=== PATIENT | female | born 1985 | race Caucasian/White ===

== ENCOUNTER 2017-01-03 23:58 | Emergency (ER) | payer MEDICAID ==
[~2017-01-03] VITALS: Ht 160 cm; Wt 49.0 kg
[2017-01-04 00:11] VITALS: BP 108/65
--- NOTE | 2017-01-04 00:22 | NUR ---
PT TAKEN TO OF2
--- NOTE | 2017-01-04 00:33 | NUR ---
Dr. Shaw evaluating patient at bedside.
[2017-01-04] MEDS ORDERED: KETOROLAC 60 MG/2 ML VIAL IM ONE (00:35)
[2017-01-04] MEDS ORDERED: ONDANSETRON 4 MG/2 ML VIAL IM ONE (00:35)
--- NOTE | 2017-01-04 01:25 | NUR ---
PATIENT PRESENTS TO ED WITH N/V, ABD PAIN, DIARRHEA STARTED AT 2000HOURS SKIN IS PINK/WARM/DRY; AAOX4 WITH EVEN AND STEADY GAIT; LUNGS CLEAR BL; HR EVEN AND REGULAR; PT DENIES ANY FEVER, CP, SOB, OR COUGH AT THIS TIME; PATIENT STATES PAIN OF 10/10 AT THIS TIME; VSS; PATIENT POSITIONED FOR COMFORT; HOB ELEVATED; BEDRAILS UP X2; BED DOWN. ER MD MADE AWARE OF PT STATUS.
--- NOTE | 2017-01-04 01:27 | NUR ---
PT MOVED TO BED 6
[2017-01-04] MEDS ORDERED: NACL 0.9% 2,000 ML IV ONE (02:15)
[2017-01-04] MEDS ORDERED: PROCHLORPERAZINE 10 MG/2 ML VIAL IVP ONE (02:15)
[2017-01-04] MEDS ORDERED: LORazepam 2 MG/ML VIAL IVP ONE (02:15)
[2017-01-04 03:27] LABS: BASOPHILS # (AUTO) 0.1 K/uL (0.00-0.22); BASOPHILS % (AUTO) 1.1 % (0.0-2.0); EOSINOPHILS # (AUTO) 0.1 K/uL (0-0.4); EOSINOPHILS % (AUTO) 0.8 % (0.0-4.0); HEMATOCRIT 40.3 % (36-48); HEMOGLOBIN 13.4 g/dL (12.0-16.0); LYMPHOCYTES % (AUTO) 10.3 % (20.5-51.1); MEAN CORPUSCULAR HEMOGLOBIN 31 pg (27-31); MEAN CORPUSCULAR HGB CONC 33 g/dL (33-37); MEAN CORPUSCULAR VOLUME 93 fL (80-94); MONOCYTES # (AUTO) 0.6 K/uL (0.8-1.0); MONOCYTES % (AUTO) 5.9 % (1.7-9.3); NEUTROPHILS # (AUTO) 7.6 K/uL (1.8-7.7); PLATELET COUNT (AUTO) 232 K/uL (140-450); RED BLOOD CELL COUNT(AUTO) 4.36 MIL/uL (4.20-5.40); RED CELL DISTRIBUTION WIDTH 12.4 % (11.6-13.7)
[2017-01-04 03:33] LABS: NEUTROPHILS % (AUTO) 81.9 % (42.2-75.2); WHITE BLOOD COUNT (AUTO) 9.4 K/uL (4.8-10.8)
[2017-01-04 03:36] LABS: ANION GAP 12.6 (8-16); CALCIUM 7.6 mg/dL (8.5-10.1); CARBON DIOXIDE 23.8 mmol/L (21-32); CREATININE 0.7 mg/dL (0.6-1.3); POTASSIUM 3.4 mmol/L (3.5-5.1)
[2017-01-04 03:42] LABS: ALBUMIN 3.4 g/dL (3.4-5.0); TOTAL BILIRUBIN 0.6 mg/dL (0.0-1.0); TOTAL PROTEIN, SERUM 6.7 g/dL (6.4-8.2)
[2017-01-04 03:47] LABS: INR 1.3 (0.8-1.2); PARTIAL THROMBOPLASTIN TIME 26.3 secs (22-35.6); PROTHROMBIN TIME 12.7 secs (10.8-13.4)
[2017-01-04 05:16] VITALS: BP 90/49
--- NOTE | 2017-01-04 05:16 | NUR ---
Patient discharged with v/s stable. Written and verbal after care instructions given and explained. Patient alert, oriented and verbalized understanding of instructions. Ambulatory with steady gait. All questions addressed prior to discharge. ID band removed. Patient advised to follow up with PMD. Rx of ZOFRAN AND TRAMADOL given. Patient educated on indication of medication including possible reaction and side effects. Opportunity to ask questions provided and answered.
== END 2017-01-04 05:16 | disposition home or self-care (01) ==
LOC: MED 23:58
DX: K52.9 Noninfective gastroenteritis and colitis, unspecified (principal); G43.909 Migraine, unspecified, not intractable, without status migrainosus
CPT/HCPCS: 36415; 80053; 85025; 85610; 85730; 96361; 96372; 96374; 96375; 99284; J0780; J1885; J2060; J2405; J7030

== ENCOUNTER 2017-04-13 02:45 | Emergency (ER) | payer MEDICAID ==
[~2017-04-13] VITALS: Ht 160 cm; Wt 46.7 kg
[2017-04-13 02:54] VITALS: BP 110/75
--- NOTE | 2017-04-13 02:59 | NUR ---
PT TAKEN TO BED 5
--- NOTE | 2017-04-13 03:00 | NUR ---
31/F BIB SPOUSE C/O 04/14 GENERALIZED ACUTE ABDOMINAL PAIN X4 HOURS, PT IS GUARDING, REPORTS N/V/D X 4 HOURS AFTER DINNER. BS ACTIVE X 4 QUADRANTS. PT DENIES HEMATEMESIS/ BLOOD IN STOOL OR URINE. PT REPORTS SHE HAD SIMILAR EPISODE FEW WEEKS AGO. DENIES PMH AND RX AT HOME. ER MD AT BEDSIDE
--- NOTE | 2017-04-13 03:01 | NUR ---
Dr. Durán evaluating patient at bedside.
[2017-04-13] MEDS ORDERED: NACL 0.9% 1,000 ML IV ONE ×2 (03:05→03:45)
[2017-04-13] MEDS ORDERED: ONDANSETRON 4 MG/2 ML VIAL IVP ONE (03:05)
[2017-04-13] MEDS ORDERED: KETOROLAC 30 MG/ML VIAL IVP ONE (03:05)
[2017-04-13 03:16] LABS: HEMATOCRIT 41.9 % (36-48); HEMOGLOBIN 13.7 g/dL (12.0-16.0); MEAN CORPUSCULAR HEMOGLOBIN 31 pg (27-31); MEAN CORPUSCULAR HGB CONC 33 g/dL (33-37); MEAN CORPUSCULAR VOLUME 93 fL (80-94); PLATELET COUNT (AUTO) 286 K/uL (140-450); RED BLOOD CELL COUNT(AUTO) 4.49 MIL/uL (4.20-5.40); RED CELL DISTRIBUTION WIDTH 12.8 % (11.6-13.7); WHITE BLOOD COUNT (AUTO) 11.9 K/uL (4.8-10.8)
[2017-04-13 03:28] LABS: EOSINOPHILS % (MANUAL) 1 % (0-4); LYMPHOCYTES % (MANUAL) 19 % (20-46); MONOCYTES % (MANUAL) 5 % (5-12)
[2017-04-13 03:31] LABS: ALBUMIN 4.2 g/dL (3.4-5.0); ANION GAP 15.1 (8-16); CARBON DIOXIDE 23.8 mmol/L (21-32); CREATININE 0.9 mg/dL (0.6-1.3); TOTAL BILIRUBIN 0.6 mg/dL (0.0-1.0)
[2017-04-13 03:34] LABS: POTASSIUM 2.9 mmol/L (3.5-5.1)
[2017-04-13] MEDS ORDERED: KCL 20 MEQ/WATER INJ PREMIX 100 ML IV ONE (03:35)
[2017-04-13] MEDS ORDERED: POTASSIUM CHLORIDE 20% 40 MEQ/15 ML UDC PO ONE (03:35)
--- NOTE | 2017-04-13 03:40 | NUR ---
SERUM K: 2.9, ERMD AWARE, K-RIDER AND POTASSIUM SUPPLEMENT PO ADMINISTERED.
[2017-04-13] MEDS ORDERED: METOCLOPRAMIDE 10 MG/2 ML INJ VIAL IVP ONE (03:45)
[2017-04-13] MEDS ORDERED: MORPHINE SULFATE 4 MG/ML SYR IVP ONE (03:55)
--- NOTE | 2017-04-13 03:55 | NUR ---
PT. UNABLE TO URINATE AT THIS TIME, UNABLE TO COLLECT URINE SPECIMEN. DR. DEL ROSARIO MADE AWARE.
[2017-04-13] MEDS ORDERED: METOCLOPRAMIDE 10 MG/2 ML INJ VIAL ONE (03:57)
[2017-04-13 05:13] LABS: APPEARANCE,URINE CLEAR (CLEAR); BILIRUBIN,URINE NEGATIVE (NEGATIVE); BLOOD, URINE NEGATIVE (NEGATIVE); COLOR,URINE YELLOW (YELLOW); LEUKOCYTE ESTERASE ,URINE NEGATIVE (NEGATIVE); NITRITE, URINE NEGATIVE (NEGATIVE); UGLUCOSE NEGATIVE (NEGATIVE)
[2017-04-13] MEDS ORDERED: DICYCLOMINE HCL LIQUID 10 MG/5 ML UDC PO ONE (05:20)
[2017-04-13 05:24] LABS: RBC,URINE 0-5 (RARE) /HPF (0-5); WBC,URINE 0-5 (RARE) /HPF (0-5)
--- NOTE | 2017-04-13 05:52 | NUR ---
Patient discharged with v/s stable. Written and verbal after care instructions given and explained. Patient alert, oriented and verbalized understanding of instructions. Ambulatory with steady gait. All questions addressed prior to discharge. ID band removed. Patient advised to follow up with PMD. Rx of ZOFRAN ODT 4MG 1 TAB EVERY 8 HOURS PRN FOR NAUSEA, BENTYL 20MG ONE TAB PO 3 TIMES DAILY PRN FOR PAIN given. Patient educated on indication of medication including possible reaction and side effects. Opportunity to ask questions provided and answered. 2 IVsremoved, catheter intact and site benign. Applied folded 4x4 gauze and tape to stop bleeding, pt jere procedure well.
[2017-04-13 05:54] VITALS: BP 104/68
== END 2017-04-13 05:52 | disposition home or self-care (01) ==
LOC: MED 02:45
DX: R11.2 Nausea with vomiting, unspecified (principal); R19.7 Diarrhea, unspecified; R10.9 Unspecified abdominal pain; E87.6 Hypokalemia; E86.0 Dehydration
CPT/HCPCS: 36415; 80053; 81001; 81025; 83690; 85025; 96361; 96374; 96375; 99285; J1885; J2270; J2405; J2765; J3480; J7030

== ENCOUNTER 2017-07-31 10:58 | Emergency (ER) | payer MEDICAID ==
[~2017-07-31] VITALS: Ht 162.6 cm; Wt 47.6 kg
[2017-07-31 11:12] VITALS: BP 138/98
[2017-07-31] MEDS ORDERED: SUMA20SP NS (11:17)
--- NOTE | 2017-07-31 11:18 | NUR ---
PATIENT TO ER BED 1
[2017-07-31] MEDS ORDERED: diphenhydrAMINE 50 MG/ML VIAL IVP ONE (11:25)
[2017-07-31] MEDS ORDERED: PROCHLORPERAZINE 10 MG/2 ML VIAL IVP ONE (11:25)
[2017-07-31] MEDS ORDERED: NACL 0.9% 1,000 ML IV ONE (11:25)
--- NOTE | 2017-07-31 11:37 | NUR ---
PATIENT BIB SELF C/O [facility]IGRAINE [place] SINCE 3AM. TOOK TYLENOL 500MG X6 ALL TOGETHER SINCE 3AM AND 1 SUMATRIPTAN PILL AT 0930. DENIES ANY DIZZINESS/BLURRY OF VISSION;DENIES N/V/D; SKIN IS PINK/WARM/DRY; AAOX4 WITH EVEN AND STEADY GAIT; LUNGS CLEAR BL; HR EVEN AND REGULAR; PT DENIES ANY FEVER, CP, SOB, OR COUGH AT THIS TIME; PATIENT STATES PAIN OF 10/10 AT THIS TIME;PATIENT POSITIONED FOR COMFORT; HOB ELEVATED; BEDRAILS UP X2; BED DOWN. ER MD MADE AWARE OF PT STATUS.
--- NOTE | 2017-07-31 11:48 | NUR ---
DR. LANGFORD BEDSIDE EVALUATING PATIENT
[2017-07-31 12:02] VITALS: BP 129/84
--- NOTE | 2017-07-31 12:02 | NUR ---
Patient discharged with v/s stable. Written and verbal after care instructions given and explained. Patient alert, oriented and verbalized understanding of instructions. Ambulatory with to car. All questions addressed prior to discharge. ID band removed. Patient advised to follow up with PMD. Rx of Sumatriptan given. Patient educated on indication of medication including possible reaction and side effects. Opportunity to ask questions provided and answered.
== END 2017-07-31 12:02 | disposition home or self-care (01) ==
LOC: MED 10:58
DX: G43.909 Migraine, unspecified, not intractable, without status migrainosus (principal)
CPT/HCPCS: 81002; 81025; 96374; 96375; 99284; J0780; J1200; J7030